=== PATIENT | female | born 1985 | race Caucasian/White ===

== ENCOUNTER 2019-03-18 14:13 | Outpatient (CLI) | payer SELFPAY ==
--- NOTE | 2019-03-18 | US_ITS ---
WS: [id number] ULTRASOUND OB COMPLETE TECHNIQUE: Complete ultrasound. CLINICAL INFORMATION: NORMAL IN MULTIGRAVIDA IN SECOND TRIMESTER COMPARISON: None. FINDINGS: Single interuterine gestation is identified with vertex presentation. Placenta is anterior. Placenta grade 0. Normal amniotic fluid volume. cardiac activity: 165 BPM. AGA: 21 weeks 5 days [place] by ultrasound: July 24, 2019 Estimated weight: 1 lb. 0 oz. BDP: 5.1 cm = 21w4d HC: 19.0 cm = 21w2d AC: 16.5 cm = 21w4d FEMUR LENGTH: 3.8 cm = 22w2e Anatomic survey: Anatomic survey is normal. Normal stomach. Kidneys and bladder are normal. Normal 3 vessel cord. Norm al 3 vessel cord insertion. Normal 4 chamber heart. Normal spine. Intracranial contents are normal. N ormal posterior fossa and cisterna magna. US/US OB >= 14 weeks fetus [id number] IMPRESSION: 1. Single intrauterine with visualized cardiac activity. AGA 21 week s 5 days 2. Placenta is anterior. No evidence of abruption or previa. 3. anatomic survey is normal. 4. Normal amniotic fluid volume.
== END 2019-03-18 14:14 | disposition home or self-care (01) ==
LOC: RADOUTREAD 03-21 11:59
PROVIDERS: Visit Provider Family Medicine
DX: Z76.89 Persons encountering health services in other specified circumstances (principal)

== ENCOUNTER 2019-07-01 08:08 | Inpatient (IN) | payer SELFPAY ==
[2019-07-01] VITALS (66 sets, daily range): BP systolic 0–184; BP diastolic 0–108; PULSE 56–112; RESP 16–17; TEMP 36.6–36.8; O2SAT 68–99; BMI 32.8
[2019-07-01] MEDS: miSOPROStol 100 mcg tablet 25 MCG VAGINAL ×3 (09:19→17:34)
[2019-07-01 10:19] LABS: Basophils % 0.2 %; Eosinophils # 0.1 10^3/uL (0.0-0.8); Eosinophils % 0.5 %; Hematocrit 36.5 % (37.0-47.0); Hemoglobin 12.1 g/dL (11.5-15.3); Lymphocytes # 1.9 10^3/uL (0.8-4.8); Lymphocytes % 14.8 %; Mean Corpuscular HGB Conc 33.2 g/dL (30.0-36.0); Mean Corpuscular Hemoglobin 28.3 pg (28.0-34.0); Mean Corpuscular Volume 85.3 fL (81-99); Mean Platelet Volume 12.3 fL (7.4-10.4); Monocytes # 0.9 10^3/uL (0.2-0.9); Monocytes % 6.7 %; Neutrophils # 9.7 10^3/uL (1.8-7.7); Neutrophils % 75.8 %; Nucleated Red Blood Cells % 0 %; Platelet Count 167 10^3/cmm (130-400); Red Blood Count 4.28 10^6/uL (4.1-5.3); Red Cell Distribution Width 15.2 % (12.1-15.1); White Blood Count 12.8 10^3/uL (4.0-10.0)
[2019-07-01] MEDS: lactated ringers 1,000 ML 999 ML IV (21:21)
--- NOTE | 2019-07-01 21:38 | ANES.PREANE2 ---
Pre-Anesthetic Assessment Pre-Anesthetic Assessment: Height/Weight: Height 1.51 m Weight 74.843 kg Temp Pulse Resp BP Pulse Ox 98.1 F 97 16 153/92 87 L 07/01/19 19:30 07/01/19 22:28 07/01/19 19:30 07/01/19 22:28 07/01/19 22:30 Preop Diagnosis: IUP 37.2 week Proposed Procedure: labor epidural Was Beta Wild taken within 24 hours: N/A Social: Social History: No alcohol and No tobacco Exam: Pre-Anes Outpt Exam: alert, oriented x 3, clear to auscultation bilaterally and regular rate & rhythm Airway: Submandibular: WNL Cervical ROM: WNL MP: 2 History/ROS: No significant history except as noted Pulmonary: Pulmonary: None reported CV/HEM: CV/HEM: HTN ( induced ) : : None reported Hepatic: Hepatic: None reported GI: GI: None reported Metabolic: Metabolic: None reported Musc/skel: Musc/skel: None reported Neuropsych: Neuropsych: None reported Anesthetic Plan: ASA status: 2 Anesthesia: Anesthesia Evaluation and Regional (specify below) Risk of > 500 ml blood loss (7ml/kg in children): No PFSH Anesthesia Female Reproductive History: : 4 Data Anesthesia CBC & Chem 7: 07/01/19 09:30 Other Labs: Laboratory Results - last 48 hr 07/01/19 09:30 WBC 12.8 H RBC 4.28 Hgb 12.1 Hct 36.5 L MCV 85.3 MCH 28.3 MCHC 33.2 RDW 15.2 H Plt Count 167 MPV 12.3 H Neut % (Auto) 75.8 Lymph % (Auto) 14.8 [place] % (Auto) 6.7 Eos % (Auto) 0.5 Baso % (Auto) 0.2 Neut # (Auto) 9.7 H Lymph # (Auto) 1.9 [place] # (Auto) 0.9 Eos # (Auto) 0.1 Baso # (Auto) 0.0 Nucleated RBC % (auto) 0 Nucleated RBCs # 0.0 Cardiac Studies: No Data to Display
--- NOTE | 2019-07-01 22:26 | ANES.PROC ---
Anesthesia Procedures Procedure/Date: 07/01/19 Procedure Narrative: 1st attempt at L4-5 blood returned in catheter, pulled and attempt X2 at L3-4. Fentanyl 100mcg given IVP Epidural: Time Out Performed: Yes Consents Signed: Procedure Consent Consent: requested by attending/covering physician Lumbar Level: L3-L4 Epidural position: sitting Epidural procedure: sterile prep of area, 1% lidocaine to numb the area, 18 g needle, negative for paresthesia passed, neg for paresthesia, test dose given, 1.5% xylocaine 1:200k epi (3ml), 0.2% Ropivacaine bolus ml, placed PCEA, no systemic response, L.U.D. no apparent complications and 0.2% Ropiavacaine @ mls/hr (10)
[2019-07-01] MEDS: oxytocin 30 UNIT/500 ML BAG 600 UNIT IV (23:28)
--- NOTE | 2019-07-01 23:55 | PM.DELIVERY ---
 Delivery Note: Date of delivery: July 01, 2019 Pre-delivery diagnoses: 34-year-old 4 para 3-0-0-3 with an estimated gestational age of 37 weeks and 2 days presenting to the OB department for induction due to gestational hypertension. The patient had had an unremarkable . Her lab work was within normal limits. Her group B strep was negative. The remainder of her blood work was within normal limits. Post-delivery diagnoses: Status post spontaneous vaginal delivery of a healthy-appearing 37-week female Op report anesthesia: Other (Fentanyl) Delivering Physician: Marcelo Webb Estimated blood loss (mL): 150 Pre-Delivery Course: The patient presented to the hospital for induction this morning due to gestational hypertension. She began having increasing blood pressures over the last week. Despite her increasing blood pressure she did not have any other symptoms of preeclampsia. She did have 1+ protein in her urine at her office visit yesterday. Given the fact that her blood pressure had recently increased, and that she had had new protein in her urine, we elected to induce her today. She had not have any other symptoms of preeclampsia including no headaches, visual changes, or significant swelling in her hands are face. Delivery: DELIVERY: The patient progressed to complete without difficulty. She delivered a female with a weight of 5 pounds 7 ounces with Apgars of 7, 9. The baby was delivered from the ROP position. The baby's mouth and nose were suctioned at the site of the perineum. The baby was then completely delivered and placed on the mother's abdomen. The cord was then clamped and cut. There was no nuchal cord. There was no meconium. The placenta and 3 vessel cord were delivered intact shortly thereafter. The perineum and vaginal vault were carefully examined. No lacerations were noted. Both the mother and the baby were in stable condition. Post-Delivery Status: Good A&P Assessment and plan (1) Spontaneous vaginal delivery: The patient has done very well and does not have any sx of preeclampsia other than an elevated bp at this time. We will continue to monitor her condition to be sure she doesn't progress. Otherwise, I anticipate a routine hospital stay with discharge in 24-28 hours. Status: Acute Coding Level of Care Code Acute Elementary Science Teacher for moni Fwemily Diagnoses Spontaneous vaginal delivery O80
[2019-07-02] VITALS (19 sets, daily range): BP systolic 0–159; BP diastolic 0–101; PULSE 76–95; RESP 15–18; TEMP 36.4–36.8; O2SAT 96–97
[2019-07-02] MEDS: lactated ringers 1,000 ML 999 ML IV (00:18)
[2019-07-02] MEDS: HYDROcodone-acetaminophen 5-325 mg Tablet PO ×4 (01:36→14:03)
[2019-07-02] MEDS: docusate sodium 100 mg Capsule PO ×2 (08:44→17:27)
[2019-07-02] MEDS: prenatal vitamin Capsule 1 CAP PO (08:44)
--- NOTE | 2019-07-02 11:48 | P.PN_ITS ---
CERTIFIED RESPIRATORY THERAPIST Subjective Subjective: Interval history: The patient is doing very well. Her bleeding is appropriate. She is breast-feeding well. Her pain is been moderate, but has been controlled with pain medication. There have been no other concerns. Her blood pressures continue to be moderately elevated. She has had no other severe features or other concerns. Labor: Station: +1 Amniotic Membrane Status: Intact Monitor Mode: External Contraction Pattern: Regular Status: Category l Vitals/I&O/Wt Last Vital Signs Temp 97.8 F 07/02/19 09:52 Pulse 79 07/02/19 09:52 Resp 18 07/02/19 09:52 BP 149/80 07/02/19 09:52 Pulse Ox 96 07/02/19 05:35 07/01/19 07/02/19 07/02/19 22:59 06:59 14:59 Intake Total 1200 / 1200 1525 / 2725 Output Total 1500 / 1500 Balance 1200 / 1200 25 / 1225 Weight last 48 hrs Weight 165 lb Physical Exam Narrative: EXAM NARRATIVE: The patient is alert. She appears comfortable. Her heart has a regular rate and rhythm with no murmurs appreciated. Lungs are clear to auscultation bilaterally. Her fundus is firm and below the umbilicus. Urinary Catheter Management^: Carias: Cath Placed During This Visit: yes Urinary Catheter Date of Insertion: 07/01/19 Urinary Catheter Time of Insertion: 22:40 Data : 07/01/19 09:30 A&P Assessment and plan (1) Spontaneous vaginal delivery: We will continue to monitor the patient today and hopefully discharge the patient home tomorrow morning. If we see any concerns about preeclampsia or any other changes we will adjust accordingly Status: Acute (2) 37 weeks gestation of : Status: Acute (3) Preeclampsia: Status: Acute Attestations Medical Necessity Statement*: Anticipate the patient will be discharged home tomorrow. Coding Level of Care Code Acute Chute Tender for Roberto Cook Diagnoses Spontaneous vaginal delivery O80 37 weeks gestation of Z3A.37 Preeclampsia O14.90
[2019-07-02 13:53] LABS: Hemoglobin 11.7 g/dL (11.5-15.3); Mean Corpuscular HGB Conc 32.5 g/dL (30.0-36.0); Mean Corpuscular Hemoglobin 27.9 pg (28.0-34.0); Mean Corpuscular Volume 85.9 fL (81-99); Mean Platelet Volume 13.6 fL (7.4-10.4); Platelet Count 152 10^3/cmm (130-400); Red Blood Count 4.19 10^6/uL (4.1-5.3); Red Cell Distribution Width 15.3 % (12.1-15.1); White Blood Count 17.8 10^3/uL (4.0-10.0)
[2019-07-03] MEDS: HYDROcodone-acetaminophen 5-325 mg Tablet PO (02:02)
[2019-07-03] MEDS: prenatal vitamin Capsule 1 CAP PO (09:51)
[2019-07-03] MEDS: docusate sodium 100 mg Capsule PO (09:51)
--- NOTE | 2019-07-03 11:52 | P.DS_ITS ---
Discharge Providers COMPONENT PREP OPERATOR Date of Admission: 07/01/19 08:08 Date of Discharge: 07/03/19 Attending Provider at Admission: Marcelo Webb MD Attending Provider at Discharge: Marcelo Webb MD Diagnoses at Discharge Discharge Diagnosis (1) Spontaneous vaginal delivery: Status: Acute (2) 37 weeks gestation of : Status: Acute (3) Preeclampsia: Status: Acute Reason for Visit Reason for Visit: Reason For Visit: INDUCTION Hospital Course Hospital Course: The patient presented to the hospital at 37 weeks and 2 days because of preeclampsia. Over the previous week she started having elevated blood pressures. She had blood pressures systolic ranging from 160s to 140s. She 1 point had 1+ protein in her urine. Otherwise she had no symptoms of preeclampsia. We talked about the pros and cons of induction, and elected to proceed with induction. Her induction was unremarkable. She had Cytotec 25 mcg x 3. An amniotomy was performed shortly before delivery of the . Her delivery was also unremarkable. She pushed through 3 contractions. Her course was unremarkable as well. Her pain was well controlled. Her bleeding was within normal limits. She breast-fed well. There were no concerns. She had no symptoms of preeclampsia. Her blood pressures continue to be in the 140s over 80s. Information Peripartum Data: Delivery Method: Vaginal Physical Exam Narrative: EXAM NARRATIVE: The patient is alert. She appears comfortable. Her heart has a regular rate and rhythm with no murmurs appreciated. Lungs are clear to auscultation bilaterally. Her fundus is firm and below the umbilicus. Urinary Catheter Management^: Carias: Cath Placed During This Visit: yes Urinary Catheter Date of Insertion: 07/01/19 Urinary Catheter Time of Insertion: 22:40 Discharge Data Data Completed and Pending: Labs from last 24 hours 07/02/19 11:38 WBC 17.8 H RBC 4.19 Hgb 11.7 Hct 36.0 L MCV 85.9 MCH 27.9 L MCHC 32.5 RDW 15.3 H Plt Count 152 MPV 13.6 H Vitals: Last Vital Signs Temp 98.2 F 07/02/19 21:00 Pulse 81 07/02/19 21:00 Resp 18 07/02/19 21:00 BP 145/85 07/02/19 21:00 Pulse Ox 96 07/02/19 05:35 Discharge Plan Discharge Patient Disposition: Home, Self-Care Condition: Stable Prescriptions: New ibuprofen 800 mg Tablet 800 mg PO TID Qty: 45 RF: 0 docusate sodium 100 mg Capsule 100 mg PO BID Qty: 20 RF: 0 Continued 28 mg iron- 800 mcg Tablet 1 tab PO DAILY RF: 0 Discharge Orders: Discharge Order (Routine); Ordered 07/03/19 Ordered By: Marcelo Webb Referrals: Marcelo Webb MD [Physician] - 6 Weeks Discharge Diet: Usual diet Discharge Activity: Limit activity as instructed Patient Instructions: Vitamins (By mouth), OB Discharge Report, OB Food/Drug Interaction Guide, OB Care at Home, OB Home Care, OB Proud Parent Packet, OB Vaginal Deliveries Discharge Attestations COMPONENT PREP OPERATOR Time Spent in Discharge Care*: less than 30 min Coding Level of Care Code Acute Painting Technician for Chg Fwd Diagnoses Spontaneous vaginal delivery O80 37 weeks gestation of Z3A.37 Preeclampsia O14.90
[2019-07-03 13:28] VITALS: BP 135/89; PULSE 90; RESP 16; TEMP 36.7; O2SAT 96
--- NOTE | 2019-07-03 15:08 | PC.NURSE ---
MMR Patient educated on MMR vaccine. Patient discussed with her options of receiving vaccine while she was here or obtaining vaccine at the health department. She requested to not receive vaccine and she will receive vaccine at health department.
== END 2019-07-03 14:30 | disposition home or self-care (01) | DRG 807 ==
PROVIDERS: Admitting Provider Family Medicine; Visit Provider Family Medicine
DX: O14.94 Unspecified pre-eclampsia, complicating childbirth (principal); Z37.0 Single live birth; Z3A.37 37 weeks gestation of pregnancy; O13.4 Gestational [pregnancy-induced] hypertension without significant proteinuria, complicating childbirth
CPT/HCPCS: 12345; 36415; 51702; 59025; 59409; 85025; 85027; 99211; J2795